=== PATIENT | male | born 1975 | race Caucasian/White ===

== ENCOUNTER 2017-04-09 12:32 | Emergency (ER) | payer MEDICAID, SELFPAY ==
[~2017-04-09] VITALS: Ht 170.2 cm; Wt 70.5 kg
[2017-04-09] MEDS ORDERED: LORazepam 2 MG/ML VIAL (J2060) IV STA ×2 (12:51→17:12)
[2017-04-09] MEDS ORDERED: SUCRALFATE 1 GM TAB PO ONE (13:00)
[2017-04-09] MEDS ORDERED: OXAZEPAM 15 MG CAP PO ONE (13:00)
[2017-04-09] MEDS ORDERED: PANTOPRAZOLE 40MG INJ (PROTONIX) (C9113) IV ONE (13:00)
[2017-04-09] MEDS ORDERED: ONDANSETRON 4MG/2ML VIAL (J2405) IV ONE (13:00)
[2017-04-09] MEDS ORDERED: NS 1,000 ML IV ONE (13:00)
--- NOTE | 2017-04-09 13:28 | REP ---
Clinical: Acute abdominal pain. Technique: Upright view of the chest with supine and upright views of the abdomen and pelvis. Findings: Frontal upright view of the chest demonstrates no acute cardiopulmonary process or free air below the diaphragm to suspect pneumoperitoneum. Supine and upright views of the abdomen and pelvis demonstrate nonspecific bowel gas pattern without obstruction or perforation. No organomegaly. Calcifications in the pelvis likely represent phleboliths. Skeletal structures normal for age. Impression: Nonspecific bowel gas pattern. Signed by Jorge Chiu MD 04/09/2017 01:20 P
[2017-04-09 13:58] LABS: BASO % 0.8 % (0.0-1.0); EOS # 0.1 K/mm3 (0.0-0.50); EOS % 1.6 % (0.0-3.0); LARGE UNSTAINED CELL # 0.1 K/mm3 (0.0-0.4); LYMPH # 0.8 K/mm3 (1.5-4.5); LYMPH % 14.5 % (24.0-44.0); MEAN CORPUSCULAR HEMOGLOBIN 32.9 pg (27.0-33.0); MEAN CORPUSCULAR HGB CONC 35.3 g/dl (32.0-36.5); MEAN CORPUSCULAR VOLUME 93.3 fl (80.0-96.0); MONO # 0.3 K/mm3 (0.0-0.8); MONO % 4.5 % (0.0-5.0); NEUTROPHILS # 4.5 K/mm3 (1.8-7.7); NEUTROPHILS % 76.6 % (36.0-66.0); PLATELET COUNT, AUTOMATED 219 k/mm3 (150-450); WHITE BLOOD COUNT 5.8 K/mm3 (4.0-10.0)
[2017-04-09 14:03] LABS: INR 0.85
[2017-04-09 14:20] LABS: ALBUMIN 3.7 GM/DL (3.2-5.2); ALBUMIN/GLOBULIN RATIO 0.95 (1.00-1.93); ALKALINE PHOSPHATASE 125 U/L (45-117); ALT/SGPT 181 U/L (12-78); AMYLASE 58 U/L (25-115); ANION GAP 11 MEQ/L (8-16); AST/SGOT 192 U/L (15-37); BILIRUBIN,DIRECT 0.2 MG/DL (0.0-0.2); BILIRUBIN,TOTAL 0.6 MG/DL (0.2-1.0); BLOOD UREA NITROGEN 7 MG/DL (7-18); CALCIUM LEVEL 8.9 MG/DL (8.5-10.1); CARBON DIOXIDE LEVEL 25 MEQ/L (21-32); CHLORIDE LEVEL 103 MEQ/L (98-107); CREATININE FOR GFR 0.46 MG/DL (0.70-1.30); GLOMERULAR FILTRATION RATE > 60.0 (>60); GLUCOSE, FASTING 100 MG/DL (70-105); POTASSIUM SERUM 3.5 MEQ/L (3.5-5.1); SODIUM LEVEL 139 MEQ/L (136-145); TOTAL PROTEIN 7.6 GM/DL (6.4-8.2)
[2017-04-09 15:57] LABS: METHADONE URINE NEGATIVE (NEGATIVE)
[2017-04-09 18:30] VITALS: BP 149/94
--- NOTE | 2017-04-09 19:52 | ECGEPIP ---
Stationary ECG Study [facility] - ED Test Date: 2017-04-09 Pat Name: MAGEN SHELDON Department: Room: - Gender: M [employer]: sb : 1975 Requested By: RAIN YEE Order Number: [id number] Reading MD: Pablo Camara Measurements Intervals [place] Rate: 94 P: 56 OR: 156 QRS: 19 QRSD: 90 T: 28 QT: 359 QTc: 451 Interpretive Statements SINUS RHYTHM NONSPECIFIC ST T WAVE CHANGES Electronically Signed On 04-09-2017 19:52:42 EDT by Pablo Camara
== END 2017-04-09 18:39 | disposition short-term general hospital (02) ==
LOC: M ED 12:32
DX: K92.2 Gastrointestinal hemorrhage, unspecified (principal); F10.10 Alcohol abuse, uncomplicated; Z72.0 Tobacco use
CPT/HCPCS: 74022; 80048; 80076; 80307; 81001; 82150; 83690; 85025; 85610; 86850; 86900; 86901; 93005; 96361; 96374; 96375; 96376; 99285; C9113; G0480; J2060; J2405